=== PATIENT | male | born 1950 | race Caucasian/White ===

== ENCOUNTER 2016-08-08 23:44 | Emergency (ER) | payer MEDICARE ==
[~2016-08-08] VITALS: Ht 172.7 cm; Wt 97.5 kg
[~2016-08-08 23:44] MED LIST changes: -ACETAMINOPHEN 1000 MG/100 ML VIAL IV ONE; -ACETAMINOPHEN/HYDROcodone 325 MG/7.5 MG TAB PO PRN; -BUPIVACAINE/EPINEPHRINE 0.25% PF 30 ML VIAL ONE; -CHLORHEXIDINE GLUCONATE 4% SOLN 120 ML BTL TOP SCH; -GENTAMICIN SULFATE 80 MG/2 ML VIAL ONE; -HYDROmorphone HCL PF 2 MG/ML VIAL ONE; -INSULIN HUMAN REGULAR 1,000 UNITS/10 ML VIAL SQ PRN; -LACTATED RINGER'S 1000 ML INJ 1,000 ML IV ONE; -LACTATED RINGER'S 1000 ML IV SCH; -METOPROLOL TARTRATE 25 MG TAB PO PRN; -MIDAZOLAM HCL 2 MG/2 ML VIAL ONE; -ONDANSETRON HCL 4 MG/2 ML VIAL ONE; -PHENYLEPH/NS 1000 MCG/10 ML SYR IV ONE; -PROPOFOL 200 MG/20 ML AMP IV ONE; -SODIUM CHLORID 0.9% 500 ML IV SCH; -ceFAZolin 1,000 MG/NS 100 ML IV SCH; -ceFAZolin 2 GM PREMIX 50 ML ONE; -ePHEDrine/NS 25 MG/5 ML SYR IV ONE; -fentaNYL CITRATE 250 MCG/5 ML AMP ONE
[2016-08-08 23:49] VITALS: BP 136/86; PULSE 116; RESP 16; TEMP 98; O2SAT 96
== END 2016-08-09 02:15 | disposition left against medical advice (07) ==
LOC: NED 23:44
DX: Z98.890 Other specified postprocedural states (principal)
CPT/HCPCS: 99281

== ENCOUNTER → 2016-08-08 | Day surgery (SDC) | payer MEDICARE ==
[~2016-08-08] VITALS: Ht 172.7 cm; Wt 98.9 kg
[~2016-08-08] MED LIST: ACETAMINOPHEN 1000 MG/100 ML VIAL IV ONE; ACETAMINOPHEN/HYDROcodone 325 MG/7.5 MG TAB PO PRN; ASPI81CH7 CHEW; BLOOD PRESSURE; BUPIVACAINE/EPINEPHRINE 0.25% PF 30 ML VIAL ONE; CHLORHEXIDINE GLUCONATE 4% SOLN 120 ML BTL TOP SCH; GENTAMICIN SULFATE 80 MG/2 ML VIAL ONE; HYDROmorphone HCL PF 2 MG/ML VIAL ONE; INSULIN HUMAN REGULAR 1,000 UNITS/10 ML VIAL SQ PRN; LACTATED RINGER'S 1000 ML INJ 1,000 ML IV ONE; LACTATED RINGER'S 1000 ML IV SCH; MELO7.5T4 PO; METOPROLOL TARTRATE 25 MG TAB PO PRN; MIDAZOLAM HCL 2 MG/2 ML VIAL ONE; ONDANSETRON HCL 4 MG/2 ML VIAL ONE; PHENYLEPH/NS 1000 MCG/10 ML SYR IV ONE; PROPOFOL 200 MG/20 ML AMP IV ONE; SODIUM CHLORID 0.9% 500 ML IV SCH; ceFAZolin 1,000 MG/NS 100 ML IV SCH; ceFAZolin 2 GM PREMIX 50 ML ONE; ePHEDrine/NS 25 MG/5 ML SYR IV ONE; fentaNYL CITRATE 250 MCG/5 ML AMP ONE
[2016-08-08 12:23] VITALS: BP 135/90; PULSE 88; RESP 20; TEMP 98.6; O2SAT 95
--- NOTE | 2016-08-08 16:54 | RADRPT ---
EXAM DATE/TIME: 08/08/2016 15:58 [place] COMPARISON: No previous studies available for comparison. INDICATIONS : Lumbar L2-5 laminectomy. OR. MEDICAL HISTORY : None. SURGICAL HISTORY : None. ENCOUNTER: Initial ACUITY: 1 day PAIN SCORE: Non-responsive. LOCATION: Lumbar L2-5 FINDINGS: Metallic probe is directed at L2 and L5. CONCLUSION: Metallic probe directed at L2 and L5. Drew Cope MD FACR on August 08, 2016 at 16:51 Board Certified Radiologist. This report was verified electronically.
[2016-08-08 17:35] VITALS: BP 119/77; PULSE 70; RESP 16; TEMP 97.4; O2SAT 100
--- NOTE | 2016-08-09 20:14 | MP ---
cc: TREMAINE JACK MANDEEP MD ALFONSO, DON J. M.D. DICK, MD,DERRICK Corrected: 08/11/2016 DATE OF SURGERY 08/08/16 PREOPERATIVE DIAGNOSIS 1. L2, L3 moderately severe spinal stenosis; L4, L5 severe spinal stenosis. 2. Lumbar spine degenerative disk osteoarthritis. 3. Left greater than right lumbar radiculitis with left lower extremity weakness. POSTOPERATIVE DIAGNOSIS 1. L2, L3 moderately severe spinal stenosis; L4, L5 severe spinal stenosis. 2. Lumbar spine degenerative disk osteoarthritis. 3. Left greater than right lumbar radiculitis with left lower extremity weakness. PROCEDURE L2, L3, L4, L5 bilateral decompressive laminectomy, bilateral foraminotomy, partial facetectomy SURGEON Maty Jack MD ELECT[employer]ICIAN [employer]ACH[employer] MARYBETH Gal[place] SPECIMENS None. ESTIMATED BLOOD LOSS 200 mL COMPLICATIONS None ANESTHESIA General DRAINS None. CONDITION Stable PLAN OF ACTIVITY Per orders. PROCEDURE IN DETAIL My assistant scientist MARYBETH Nicholas, was present for the entire surgical case. She was medically necessary for the entire case because of the complexity of the case and to facilitate the performance of the procedure. The SPECIAL EDUCATION AIDE at the back table was not a skill set for this case to manipulate the instruments e.g. multiple different types of soft tissue retractors and nerve retractors. The patient was brought into the operating room and had satisfactory general endotracheal anesthesia by Dr. Goss, Department of Anesthesia. The patient was carefully transferred onto the [facility] spinal frame. Lumbosacral spine was prepped and draped in usual sterile manner. Localizing x-ray was used throughout the operation to localize the L2-L5 decompressive segments. 30 mL of 0.25% Marcaine with epinephrine was used to infiltrate the operative site to provide postoperative hemostasis and also postoperative analgesia. Midline incision made from L2-L5. All bleeders had been coagulated by dissection and carried through the skin and subcutaneous tissue down to the tips of posterior spinous processes. The posterior elements were gently removed from the posterior spinous processes bilaterally at L2, L3, L4, L5. A bilateral decompressive laminectomy was performed a L5,L4,L3,L2. The patient was found to have severe spinal stenosis at L5 and L4. Patient was found to have moderately severe spinal stenosis at L2 and L3. Bilateral foraminotomies and partial facetectomy was also performed. The wound was irrigated with copious amounts of sterile saline. Wound itself was dry. There was no evidence of any cerebrospinal fluid leak or fistulas. There was no significant bleeding. The wound was closed in routine manner with a #2 Tycron suture. Subcuticular layers with 2-0 Vicryl. Skin was approximated with interrupted 2-0 nylon. Sterile dressings were applied. The patient tolerated the procedure well and went to recovery room in stable and satisfactory condition. MD ROSY Vivar/ /4:30 PM /7:49 PM MTDTimi
== END | disposition home or self-care (01) ==
LOC: HSDC 11:34
PROVIDERS: ATTEND Orthopaedic Surgery Orthopaedic Surgery of the Spine
DX: M48.06 Spinal stenosis, lumbar region (principal); M47.9 Spondylosis, unspecified; M51.36 Other intervertebral disc degeneration, lumbar region; M54.16 Radiculopathy, lumbar region; R53.1 Weakness
CPT/HCPCS: 00630; 63030; 63035; 72020; 76000; J0131; J0690; J1580; J2250; J2370; J2405; J3010; J7120; J1170